=== PATIENT | male | born 1970 | race African-American/Black ===

== ENCOUNTER 2019-12-12 14:57 | Inpatient (IN) | payer OTHER ==
--- NOTE | 2019-12-12 15:33 | BHS.RME ---
Substance Use & Tx History - Substance Use History Alcohol Substance amount: one pint Vodka or Rum, 1-2 cans of beer, 24 ounces each Frequency of use: Daily Substance route: Oral Date of Last Use: 12/11/19 (First use age 12 y. No seizures. No blackouts. Admits to eye stamping machine operator) Heroin Substance amount: 12-14 bags Frequency of use: Daily Substance route: Inhalation (ex: sniffing or snorting) Date of Last Use: 12/12/19 (First use age 24y. No Od. Has Narcan at home) Nicotine Substance amount: 5 cigs Frequency of use: Daily Substance route: Smoking Date of Last Use: 12/12/19 (first use age 12y) - Last Treatment Date of last treatment: October 2018 to May 2019, detox and rehab Treatment type: Substance Use Disorder (PADMA) Where was last treatment: Detox Physical/Psych/Mental Status - Behavior General Behavior: Increased activity (restlessness, agitation) Eye Contact: Normal - Cooperativeness Cooperativeness: Cooperative - Thinking Thought Processes: Tight Thought content: Future oriented - Physical Health Problems Is patient presently having any pain?: Yes (low back pain withdrawal sx) Does patient presently have any injuries (include location): No Does patient currently have a fever: No COWS - Scale Resting Pulse: 1= [place] 81-100 Sweatin= Beads of Sweat on Face Restless Observation: 0= Sits Still Pupil Size: 0= Normal to Room Light Bone or Joint Aches: 1= Mild Discomfort Runny Nose/ Eye Tearin= Nasal Congestion GI Upset > 30mins: 1= Stomach Cramp Tremor Observation: 2= Slight Tremor Visible Yawning Observation: 0= None Anxiety or Irritability: 1=Feels Anxious/Irritable Goose Flesh Skin: 0=Smooth Skin COWS Score: 10 CIWA Nausea/Vomitin Muscle Tremors: 3 Anxiety: 2 Agitation: 0-Normal Activity Paroxysmal Sweats: 4-Forehead w/Sweat Beads Orientation: 0-Oriented Tacttile Disturbances: 0-None Auditory Disturbances: 0-None Visual Disturbances: 0-None Headache: 0-None Present CIWA-Ar Total Score: 12
[2019-12-12 16:19] VITALS: BMI 30.1
--- NOTE | 2019-12-12 17:18 | HP ---
COWS - Scale Resting Pulse: 1= [place] 81-100 Sweatin= Beads of Sweat on Face Restless Observation: 1= Difficult to Sit Still Pupil Size: 1= Pupils >than Normal Bone or Joint Aches: 4=Acute Joint/Muscle Pain Runny Nose/ Eye Tearin= Runny Nose/Eyes GI Upset > 30mins: 1= Stomach Cramp Tremor Observation: 2= Slight Tremor Visible Yawning Observation: 1= 1-2x During Session Anxiety or Irritability: 1=Feels Anxious/Irritable Goose Flesh Skin: 0=Smooth Skin COWS Score: 17 CIWA Score Nausea/Vomitin Muscle Tremors: 4-Moderate,w/Arms Extend Anxiety: 3 Agitation: 2 Paroxysmal Sweats: 4-Forehead w/Sweat Beads Orientation: 0-Oriented Tacttile Disturbances: 0-None Auditory Disturbances: 0-None Visual Disturbances: 0-None Headache: 2-Mild CIWA-Ar Total Score: 18 - Admission Criteria OASAS Guidelines: Admission for Medically Managed Detox: Requires at least one of the followin. CIWA greater than 12 2. Seizures within the past 24 hours 3. Delirium tremens within the past 24 hours 4. Hallucinations within the past 24 hours 5. Acute intervention needed for co occurring medical disorder 6. Acute intervention needed for co occurring psychiatric disorder 7. Severe withdrawal that cannot be handled at a lower level of care (continued vomiting, continued diarrhea, abnormal vital signs) requiring intravenous medication and/or fluids 8. Admission ROS [facility] Chief Complaint: Seeking admission to detox from heroin and alcohol Allergies/Adverse Reactions: Allergies Allergy/AdvReac Type Severity Reaction Status Date / Time aspirin Allergy Verified 12/12/19 19:31 aspirin Allergy Uncoded 12/12/19 18:33 History of Present Illness: 48 years old male with 24 years of heroin dependence and 35 years of alcohol dependence is seeking admission to detox. This is his first admission to [facility] and he was referred from [facility]. Patient reports that his last detox was at [facility] and he relapsed in July 2019. Patient reports use of 12-14 bags of heroin daily and he drinks 1 pint Vodka or rum and 2 cans 24 oz. beer daily. He denies medical history, psych. history and suicidal ideation at this time. Patient is noted with right hand tremor and states that he has not been medically diagnosed for the condition and he is to follow up with a neurologist after detox. 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 He is unemployed, homeless and denies legal issues. Exam Limitations: No Limitations - Ebola screening Have you traveled outside of the country in the last 21 days: No Have you had contact with anyone from an Ebola affected area: No Have you been sick,other than usual withdrawal symptoms: No Do you have a fever: No - Review of Systems Constitutional: Chills, Malaise, Night Sweats, Changes in sleep, Other (right hand tremors) EENT: reports: Nose Congestion Respiratory: reports: No Symptoms reported Cardiac: reports: No Symptoms Reported GI: reports: Nausea, Poor Appetite, Poor Fluid Intake, Abdominal cramping : reports: No Symptoms Reported Musculoskeletal: reports: Back Pain Integumentary: reports: Dryness, Flushing, Sweating Neuro: reports: Headache, Tremors Endocrine: reports: No Symptoms Reported Hematology: reports: No Symptoms Reported Psychiatric: reports: Mood/Affect Appropiate, Orientated x3 Other Systems: Reviewed and Negative Patient History - Patient Medical History Hx Anemia: No Hx Asthma: No Hx Chronic Obstructive Pulmonary Disease (COPD): No Hx Cancer: No Hx Cardiac Disorders: No Hx Congestive Heart Failure: No Hx Hypertension: No Hx Hypercholesterolemia: No Hx Pacemaker: No HX Cerebrovascular Accident: No Hx Seizures: No Hx Dementia: No Hx Diabetes: No Hx Gastrointestinal Disorders: No Hx Liver Disease: No Hx Genitourinary Disorders: No Hx Sexually Transmitted Disorders: No Hx Renal Disease (ESRD): No Hx Thyroid Disease: No Hx Human Immunodeficiency Virus (HIV): No (Negative 2020) Hx Hepatitis C: No Hx Depression: No Hx Suicide Attempt: No (Denies suicidal ideation at this time) Hx Bipolar Disorder: No Hx Schizophrenia: No - Patient Surgical History Past Surgical History: No - PPD History Previous Implant?: Yes Documented Results: Negative w/o proof Implanted On Prior R Admission?: No PPD to be Administered?: Yes - Reproductive History Patient is a Female of Child Bearing Age (11 -55 yrs old): No (Male) - Smoking Cessation Smoking history: Current every day smoker Have you smoked in the past 12 months: Yes Aproximately how many cigarettes per day: 5 Hx Chewing Tobacco Use: No Initiated information on smoking cessation: Yes 'Breaking Loose' booklet given: 12/12/19 - Substance & Tx. History Hx Alcohol Use: Yes Hx Substance Use: Yes Substance Use Type: Alcohol, Heroin Hx Substance Use Treatment: Yes ([facility]) - Substances abused Alcohol Amount used: 1 pint Vodka or rum and 2 cans 24 oz. beer Age of first use: 12 Date of last use: 12/11/19 Heroin Substance route: Inhalation Frequency: Daily Amount used: 12-14 bags of heroin Age of first use: 24 Date of last use: 12/12/19 Admission Physical Exam [facility] - Vital Signs Vital Signs: Vital Signs - 24 hr 12/12/19 16:18 Temperature 97.9 F Pulse Rate 89 Respiratory 16 Rate Blood Pressure 124/79 - Physical General Appearance: Yes: Moderate Distress, Tremorous, Irritable, Sweating HEENTM: Yes: Within Normal Limits Respiratory: Yes: Lungs Clear, Normal Breath Sounds, No Respiratory Distress Neck: Yes: Within Normal Limits Breast: Yes: Breast Exam Deferred Cardiology: Yes: Within Normal Limits Abdominal: Yes: Normal Bowel Sounds, Protuberent Genitourinary: Yes: Within Normal Limits Back: Yes: Normal Inspection Musculoskeletal: Yes: Back pain Extremities: Yes: Tremors, Other (right hand tremors) Neurological: Yes: Alert, Normal Mood/Affect Integumentary: Yes: Warm Lymphatic: Yes: Within Normal Limits - Diagnostic (1) Opioid dependence with withdrawal Current Visit: Yes Status: Acute (2) Alcohol dependence with withdrawal, uncomplicated Current Visit: Yes Status: Acute (3) Nicotine dependence Current Visit: Yes Status: Chronic Qualifiers: Nicotine product type: cigarettes Substance use status: uncomplicated Qualified Code(s): F17.210 - Nicotine dependence, cigarettes, uncomplicated (4) Tremor of right hand Current Visit: Yes Status: Chronic Cleared for Admission [facility] - Detox or Rehab [facility] Level of Care: Medically Managed Detox Regimen/Protocol: Librium, Methadone Claeared for Rehab Admission: No Breathalyzer - Breathalyzer Breathalyzer: 0 Urine Drug Screen - Test Device Lot number: [id number] Expiration date: 01/19/21 - Control Is test valid?: Yes - Results Drug screen NEGATIVE: No Urine drug screen results: FEN-Fentanyl, MOP-Opiates Inpatient Rehab Admission - Rehab Decision to Admit Inpatient rehab admission?: No
[2019-12-12] MEDS ORDERED: NICOTINE POLACRILEX 2 MG GUM BUC PRN (19:06)
[2019-12-12] MEDS ORDERED: BISMUTH SUBSALICYLATE 524 MG/30 ML UD PO PRN (19:06)
[2019-12-12] MEDS ORDERED: IBUPROFEN 400 MG TABLET (FP) PO PRN (19:06)
[2019-12-12] MEDS ORDERED: MAG HYDROX/AL HYDROX/SIMETH 30 ML UNIT-DOSE CUP PO PRN (19:06)
[2019-12-12] MEDS ORDERED: MAGNESIUM CITRATE 300 ML BOTTLE PO PRN (19:06)
[2019-12-12] MEDS ORDERED: chlordiazePOXIDE HCL 25 MG CAPSULE PO PRN (19:06)
[2019-12-12] MEDS ORDERED: MENTHOL/PHENOL 1 EACH UD MM PRN (19:06)
[2019-12-12] MEDS ORDERED: ACETAMINOPHEN 325 MG TABLET (FP) PO PRN ×2 (19:06)
[2019-12-12] MEDS ORDERED: cloNIDine HCL 0.1 MG TABLET PO PRN (19:06)
[2019-12-12] MEDS ORDERED: MAGNESIUM HYDROX 2400MG/30ML ORAL SUSPENSION 30 ML CUP PO PRN (19:06)
[2019-12-12] MEDS ORDERED: TUBERCULIN PPD 5 TU/0.1ML VIAL ID ONE (19:41)
[2019-12-12] MEDS ORDERED: ONDANSETRON *ODT* 4 MG TABLET SL ONE (19:45)
[2019-12-12] MEDS ORDERED: METHADONE HCL 10 MG TABLET (FOR DETOX USE ONLY) PO ONE (19:45)
[2019-12-12] MEDS: THIAMINE HCL 100 MG TABLET (FP) PO SCH (22:35)
[2019-12-12] MEDS: hydrOXYzine PAMOATE 25 MG CAPSULE (FP) PO PRN (22:35)
[2019-12-12] MEDS: MELATONIN 5 MG TABLETS PO SCH (22:35)
[2019-12-12] MEDS: chlordiazePOXIDE HCL 25 MG CAPSULE PO SCH (22:35)
[2019-12-13] MEDS: chlordiazePOXIDE HCL 25 MG CAPSULE PO SCH ×4 (06:30→22:18)
[2019-12-13] MEDS ORDERED: METHADONE (DETOX) 20 MG, METHADONE (DETOX) 5 MG PO ONE (10:00)
[2019-12-13 10:23] LABS: HEMOGLOBIN 13.6 GM/dL (11.7-16.9); MCHC 33.3 g/dl (32.0-35.9); MEAN CELL VOLUME 84.2 fl (80-96); MEAN PLT VOLUME 8.2 fl (7.5-11.1); PLATELET COUNT 216 K/MM3 (134-434); RBC 4.87 M/mm3 (4.00-5.60); RDW 15.1 % (11.9-15.9); WHITE BLOOD COUNT 5.3 K/mm3 (4.0-10.0)
[2019-12-13 10:37] LABS: ALBUMIN 3.6 g/dl (3.4-5.0); BILIRUBIN,TOTAL 0.6 mg/dL (0.2-1); BLOOD UREA NITROGEN 9.5 mg/dL (7-18); CALCIUM 9.6 mg/dL (8.5-10.1); POTASSIUM 4.2 mmol/L (3.5-5.1); TOT PROT 7.1 g/dl (6.4-8.2)
[2019-12-13] MEDS: hydrOXYzine PAMOATE 25 MG CAPSULE (FP) PO PRN ×3 (10:59→22:18)
[2019-12-13] MEDS: PRENATAL VITAMINS W/ FOLIC ACID TABLET (FP) PO SCH (10:59)
[2019-12-13] MEDS: NICOTINE 14 MG/24 HOURS TOPICAL PATCH TD SCH (10:59)
[2019-12-13] MEDS ORDERED: METHADONE HCL 5 MG TABLET (FOR DETOX USE ONLY) ONE (11:00)
[2019-12-13] MEDS ORDERED: METHADONE HCL 10 MG TABLET (FOR DETOX USE ONLY) ONE (11:00)
--- NOTE | 2019-12-13 11:19 | EKG ---
Test Reason : Blood Pressure : / mmHG Vent. Rate : 070 BPM Atrial Rate : 070 BPM P-R Int : 206 ms QRS Dur : 086 ms QT Int : 370 ms P-R-T Axes : 055 -10 -06 degrees QTc Int : 399 ms NORMAL SINUS RHYTHM NO PREVIOUS ECGS AVAILABLE POOR DATA QUALITY, INTERPRETATION MAY BE ADVERSELY AFFECTED Confirmed by ENID HERNANDEZ MD ([id number]) on 12/13/2019 11:19:43 AM Referred By: Confirmed By:ENID HERNANDEZ MD
--- NOTE | 2019-12-13 13:53 | PN ---
[facility] CIWA - CIWA Score Nausea/Vomitin-No Nausea/No Vomiting Muscle Tremors: 4-Moderate,w/Arms Extend Anxiety: 4-Mod. Anxious/Guarded Agitation: 2 Paroxysmal Sweats: 1-Minimal Palms Moist Orientation: 0-Oriented Tacttile Disturbances: 0-None Auditory Disturbances: 0-None Visual Disturbances: 0-None Headache: 0-None Present CIWA-Ar Total Score: 11 S COWS - Scale Resting Pulse: 0= [place] 80 or Below Sweatin= Chills/Flushing Restless Observation: 3= Extraneous Movement Pupil Size: 0= Normal to Room Light Bone or Joint Aches: 1= Mild Discomfort Runny Nose/ Eye Tearin= None GI Upset > 30mins: 0= None Tremor Observation of Outstretched Hands: 1= Tremor [place], Not Seen Yawning Observation: 0= None Anxiety or Irritability: 2=Irritable/Anxious Goose Flesh Skin: 0=Smooth Skin COWS Score: 8 S Progress Note (SOAP) Subjective: c/o anxiety fatigue tremors sweats Objective: 12/13/19 13:50 Vital Signs - 24 hr 12/12/19 12/12/19 12/12/19 16:18 18:35 19:15 Temperature 97.9 F 97.3 F L Pulse Rate 89 89 Respiratory 16 16 Rate Blood Pressure 124/79 124/79 O2 Sat by Pulse 98 Oximetry (%) 12/12/19 12/12/19 12/13/19 19:30 20:41 06:58 Temperature 97.8 F 98.2 F 98.2 F Pulse Rate 65 78 65 Respiratory 18 18 16 Rate Blood Pressure 136/88 127/79 136/82 O2 Sat by Pulse 96 97 Oximetry (%) Laboratory Tests 12/13/19 12/13/19 12/13/19 08:15 08:15 08:15 WBC 5.3 RBC 4.87 Hgb 13.6 Hct 41.0 MCV 84.2 MCH 28.0 MCHC 33.3 RDW 15.1 Plt Count 216 MPV 8.2 Sodium 141 Potassium 4.2 Chloride 104 Carbon Dioxide 31 Anion Gap 6 L BUN 9.5 Creatinine 1.0 Est GFR (CKD-EPI)AfAm 101.26 Est GFR (CKD-EPI)NonAf 87.37 Random Glucose 87 Calcium 9.6 Total Bilirubin 0.6 AST 12 L ALT 16 Alkaline Phosphatase 57 Total Protein 7.1 Albumin 3.6 Syphilis Serology Non-reactive covid-19 result pending alert o x 3 nad saw pt in bed during rounds but awake and communicated needs coherently. 12/13/19 13:53 Assessment: 12/13/19 13:51 withdrawal sx Plan: cont detox increase po fluids maintain safety
[2019-12-13] MEDS: MELATONIN 5 MG TABLETS PO SCH (22:17)
[2019-12-13] MEDS: THIAMINE HCL 100 MG TABLET (FP) PO SCH (22:18)
[2019-12-14] MEDS: chlordiazePOXIDE HCL 25 MG CAPSULE PO SCH ×4 (06:31→22:23)
[2019-12-14] MEDS ORDERED: METHADONE HCL 10 MG TABLET (FOR DETOX USE ONLY) PO ONE (10:00)
[2019-12-14] MEDS: PRENATAL VITAMINS W/ FOLIC ACID TABLET (FP) PO SCH (10:13)
[2019-12-14] MEDS: NICOTINE 14 MG/24 HOURS TOPICAL PATCH TD SCH (10:13)
--- NOTE | 2019-12-14 17:29 | PN ---
S CIWA - CIWA Score Nausea/Vomitin (Stomach Cramping.) Muscle Tremors: None Anxiety: 3 Agitation: 2 Paroxysmal Sweats: No Perspiration Orientation: 0-Oriented Tacttile Disturbances: 0-None Auditory Disturbances: 0-None Visual Disturbances: 0-None Headache: 0-None Present CIWA-Ar Total Score: 7 BHS COWS - Scale Resting Pulse: 0= [place] 80 or Below Sweatin= Chills/Flushing Restless Observation: 1= Difficult to Sit Still Pupil Size: 0= Normal to Room Light Bone or Joint Aches: 0= None Runny Nose/ Eye Tearin= None GI Upset > 30mins: 1= Stomach Cramp Tremor Observation of Outstretched Hands: 0= None Yawning Observation: 1= 1-2x During Session Anxiety or Irritability: 2=Irritable/Anxious Goose Flesh Skin: 0=Smooth Skin COWS Score: 6 BHS Progress Note (SOAP) Subjective: Body Aches, Stomach Cramping, Fatigue. Objective: Patient A & O X 3; In No Acute Distress. 12/14/19 17:30 Vital Signs Temperature 98.2 F 12/14/19 13:51 Pulse Rate 70 12/14/19 13:51 Respiratory Rate 17 12/14/19 13:51 Blood Pressure 138/78 12/14/19 13:51 O2 Sat by Pulse Oximetry (%) 95 12/14/19 09:10 Laboratory Tests 12/12/19 12/13/19 12/13/19 18:50 08:15 08:15 WBC 5.3 RBC 4.87 Hgb 13.6 Hct 41.0 MCV 84.2 MCH 28.0 MCHC 33.3 RDW 15.1 Plt Count 216 MPV 8.2 Sodium Potassium Chloride Carbon Dioxide Anion Gap BUN Creatinine Est GFR (CKD-EPI)AfAm Est GFR (CKD-EPI)NonAf Random Glucose Calcium Total Bilirubin AST ALT Alkaline Phosphatase Total Protein Albumin Syphilis Serology Non-reactive COVID-19 (JUS) Not detected 12/13/19 08:15 WBC RBC Hgb Hct MCV MCH MCHC RDW Plt Count MPV Sodium 141 Potassium 4.2 Chloride 104 Carbon Dioxide 31 Anion Gap 6 L BUN 9.5 Creatinine 1.0 Est GFR (CKD-EPI)AfAm 101.26 Est GFR (CKD-EPI)NonAf 87.37 Random Glucose 87 Calcium 9.6 Total Bilirubin 0.6 AST 12 L ALT 16 Alkaline Phosphatase 57 Total Protein 7.1 Albumin 3.6 Syphilis Serology COVID-19 (JUS) Lab Results noted. Assessment: 12/14/19 17:31 WITHDRAWAL SYMPTOMS. Plan: Continue Detox.
[2019-12-14] MEDS: hydrOXYzine PAMOATE 25 MG CAPSULE (FP) PO PRN ×2 (17:49→22:23)
[2019-12-14] MEDS: MELATONIN 5 MG TABLETS PO SCH (22:23)
[2019-12-14] MEDS: THIAMINE HCL 100 MG TABLET (FP) PO SCH (22:24)
[2019-12-15] MEDS ORDERED: chlordiazePOXIDE HCL 10 MG CAPSULE PO PRN
[2019-12-15] MEDS: chlordiazePOXIDE HCL 10 MG CAPSULE PO SCH ×4 (06:11→22:20)
[2019-12-15] MEDS ORDERED: METHADONE HCL 5 MG TABLET (FOR DETOX USE ONLY) ONE (08:26)
[2019-12-15] MEDS ORDERED: METHADONE HCL 10 MG TABLET (FOR DETOX USE ONLY) ONE (08:26)
[2019-12-15] MEDS ORDERED: METHADONE (DETOX) 10 MG, METHADONE (DETOX) 5 MG PO ONE (10:00)
[2019-12-15] MEDS: NICOTINE 14 MG/24 HOURS TOPICAL PATCH TD SCH (10:14)
[2019-12-15] MEDS: PRENATAL VITAMINS W/ FOLIC ACID TABLET (FP) PO SCH (10:14)
[2019-12-15] MEDS: METHOCARBAMOL 500 MG TABLET PO PRN ×2 (10:14→17:28)
[2019-12-15] MEDS ORDERED: ONDANSETRON *ODT* 4 MG TABLET SL PRN (15:53)
--- NOTE | 2019-12-15 15:55 | PN ---
[facility] CIWA - CIWA Score Nausea/Vomitin-No Nausea/No Vomiting Muscle Tremors: 2 Anxiety: 2 Agitation: 1-Slight > Activity Paroxysmal Sweats: 1-Minimal Palms Moist Orientation: 0-Oriented Tacttile Disturbances: 0-None Auditory Disturbances: 0-None Visual Disturbances: 0-None Headache: 0-None Present CIWA-Ar Total Score: 6 BHS COWS - Scale Resting Pulse: 2= [place] 101-120 Sweatin= Chills/Flushing Restless Observation: 0= Sits Still Pupil Size: 0= Normal to Room Light Bone or Joint Aches: 1= Mild Discomfort Runny Nose/ Eye Tearin= None GI Upset > 30mins: 1= Stomach Cramp Tremor Observation of Outstretched Hands: 2= Slight Tremor Visible Yawning Observation: 0= None Anxiety or Irritability: 1=Feels Anxious/Irritable Goose Flesh Skin: 0=Smooth Skin COWS Score: 8 S Progress Note (SOAP) Subjective: Back pain, sweating, feels weak Objective: 12/15/19 15:55 Last Vital Signs Temp Pulse Resp BP Pulse Ox 98.2 F 104 H 20 109/80 98 12/15/19 12:45 12/15/19 12:45 12/15/19 12:45 12/15/19 12:45 12/15/19 12:45 Laboratory Tests 12/12/19 12/13/19 12/13/19 18:50 08:15 08:15 WBC 5.3 RBC 4.87 Hgb 13.6 Hct 41.0 MCV 84.2 MCH 28.0 MCHC 33.3 RDW 15.1 Plt Count 216 MPV 8.2 Sodium Potassium Chloride Carbon Dioxide Anion Gap BUN Creatinine Est GFR (CKD-EPI)AfAm Est GFR (CKD-EPI)NonAf Random Glucose Calcium Total Bilirubin AST ALT Alkaline Phosphatase Total Protein Albumin Syphilis Serology Non-reactive COVID-19 (JUS) Not detected 12/13/19 08:15 WBC RBC Hgb Hct MCV MCH MCHC RDW Plt Count MPV Sodium 141 Potassium 4.2 Chloride 104 Carbon Dioxide 31 Anion Gap 6 L BUN 9.5 Creatinine 1.0 Est GFR (CKD-EPI)AfAm 101.26 Est GFR (CKD-EPI)NonAf 87.37 Random Glucose 87 Calcium 9.6 Total Bilirubin 0.6 AST 12 L ALT 16 Alkaline Phosphatase 57 Total Protein 7.1 Albumin 3.6 Syphilis Serology COVID-19 (JUS) Labs reviewed Assessment: 12/15/19 15:55 Withdrawal sxs Plan: Continue detox Encourage PO water intake
[2019-12-15] MEDS: hydrOXYzine PAMOATE 25 MG CAPSULE (FP) PO PRN (17:28)
[2019-12-15] MEDS: THIAMINE HCL 100 MG TABLET (FP) PO SCH (22:19)
[2019-12-15] MEDS: MELATONIN 5 MG TABLETS PO SCH (22:19)
[2019-12-16] MEDS: chlordiazePOXIDE HCL 10 MG CAPSULE PO SCH ×2 (06:02→17:53)
[2019-12-16] MEDS ORDERED: METHADONE HCL 10 MG TABLET (FOR DETOX USE ONLY) PO ONE (10:00)
[2019-12-16] MEDS: PRENATAL VITAMINS W/ FOLIC ACID TABLET (FP) PO SCH (10:12)
[2019-12-16] MEDS: NICOTINE 14 MG/24 HOURS TOPICAL PATCH TD SCH (10:13)
[2019-12-16] MEDS: METHOCARBAMOL 500 MG TABLET PO PRN ×2 (10:13→17:55)
--- NOTE | 2019-12-16 12:26 | PN ---
S CIWA - CIWA Score Nausea/Vomitin-No Nausea/No Vomiting Muscle Tremors: 2 Anxiety: 3 Agitation: 0-Normal Activity Paroxysmal Sweats: No Perspiration Orientation: 0-Oriented Tacttile Disturbances: 0-None Auditory Disturbances: 0-None Visual Disturbances: 0-None Headache: 0-None Present CIWA-Ar Total Score: 5 S COWS - Scale Resting Pulse: 1= [place] 81-100 Sweatin= Chills/Flushing Restless Observation: 0= Sits Still Pupil Size: 0= Normal to Room Light Bone or Joint Aches: 1= Mild Discomfort Runny Nose/ Eye Tearin= None GI Upset > 30mins: 0= None Tremor Observation of Outstretched Hands: 0= None Yawning Observation: 0= None Anxiety or Irritability: 1=Feels Anxious/Irritable Goose Flesh Skin: 0=Smooth Skin COWS Score: 4 S Progress Note (SOAP) Subjective: Pt reports "I feel better today than when i got here". slight anxiety muscle aches Objective: 12/16/19 12:26 Vital Signs - 24 hr 12/15/19 12/15/19 12/15/19 12:45 17:14 20:35 Temperature 98.2 F 98.4 F 97.8 F Pulse Rate 104 H 86 82 Respiratory 20 18 18 Rate Blood Pressure 109/80 125/83 115/73 O2 Sat by Pulse 98 95 Oximetry (%) 12/16/19 05:49 Temperature 97.8 F Pulse Rate 74 Respiratory 18 Rate Blood Pressure 123/82 O2 Sat by Pulse 95 Oximetry (%) Laboratory Tests 12/12/19 12/13/19 12/13/19 18:50 08:15 08:15 WBC 5.3 RBC 4.87 Hgb 13.6 Hct 41.0 MCV 84.2 MCH 28.0 MCHC 33.3 RDW 15.1 Plt Count 216 MPV 8.2 Sodium Potassium Chloride Carbon Dioxide Anion Gap BUN Creatinine Est GFR (CKD-EPI)AfAm Est GFR (CKD-EPI)NonAf Random Glucose Calcium Total Bilirubin AST ALT Alkaline Phosphatase Total Protein Albumin Syphilis Serology Non-reactive COVID-19 (JUS) Not detected 12/13/19 08:15 WBC RBC Hgb Hct MCV MCH MCHC RDW Plt Count MPV Sodium 141 Potassium 4.2 Chloride 104 Carbon Dioxide 31 Anion Gap 6 L BUN 9.5 Creatinine 1.0 Est GFR (CKD-EPI)AfAm 101.26 Est GFR (CKD-EPI)NonAf 87.37 Random Glucose 87 Calcium 9.6 Total Bilirubin 0.6 AST 12 L ALT 16 Alkaline Phosphatase 57 Total Protein 7.1 Albumin 3.6 Syphilis Serology COVID-19 (JUS) covid-19 not detected alert o x 3 nad oob ambulating with steady gait Assessment: 12/16/19 12:26 withdrawal sx Plan: cont detox increase po fluids maintain safety pt to meet with his counselor today for aftercare arrangement. Scheduled for discharge in the morning if medically stable.
[2019-12-16] MEDS: hydrOXYzine PAMOATE 25 MG CAPSULE (FP) PO PRN (17:53)
[2019-12-16] MEDS: MELATONIN 5 MG TABLETS PO SCH (22:24)
[2019-12-16] MEDS: THIAMINE HCL 100 MG TABLET (FP) PO SCH (22:24)
[2019-12-17] MEDS ORDERED: chlordiazePOXIDE HCL 10 MG CAPSULE PO ONE (05:00)
[2019-12-17] MEDS ORDERED: METHADONE HCL 5 MG TABLET (FOR DETOX USE ONLY) PO ONE (06:00)
[2019-12-17 06:19] VITALS: BP 122/80; PULSE 72; TEMP 97.8
[2019-12-17 09:26] LABS: URINE APPEARANCE CLEAR; URINE BILIRUBIN NEGATIVE (NEGATIVE); URINE COLOR YELLOW; URINE GLUCOSE (UA) NEGATIVE (NEGATIVE); URINE KETONE NEGATIVE (NEGATIVE); URINE LEUK ESTERASE NEGATIVE (NEGATIVE); URINE NITRITE NEGATIVE (NEGATIVE); URINE PROTEIN NEGATIVE (NEGATIVE); URINE UROBILINOGEN 0.2 mg/dL (0.2-1.0)
--- NOTE | 2019-12-17 14:37 | DS ---
[facility] Detox Discharge Summary Admission Date: 12/12/19 Discharge Date: 12/17/19 - History Present History: Alcohol Dependence, Opioid Dependence Additional Comments: Pt reports he has a primary care with Dr. Corley at [facility], [address] [place] [address]. [phone]. Pertinent Past History: Denies - Physical Exam Results Vital Signs: Vital Signs Temperature 97.8 F 12/17/19 05:51 Pulse Rate 72 12/17/19 05:51 Respiratory Rate 18 12/17/19 05:51 Blood Pressure 122/80 12/17/19 05:51 O2 Sat by Pulse Oximetry (%) 96 12/17/19 05:51 Alert o x 3 nad oob ambulating with steady gait cardiac:s1 s2, rrr lungs:ctab abdomen;soft,+bs,nt,nd extremities:no edema, skin intact. Pertinent Admission Physical Exam Findings: Laboratory Tests 12/12/19 12/13/19 12/13/19 18:50 08:15 08:15 WBC 5.3 RBC 4.87 Hgb 13.6 Hct 41.0 MCV 84.2 MCH 28.0 MCHC 33.3 RDW 15.1 Plt Count 216 MPV 8.2 Sodium Potassium Chloride Carbon Dioxide Anion Gap BUN Creatinine Est GFR (CKD-EPI)AfAm Est GFR (CKD-EPI)NonAf Random Glucose Calcium Total Bilirubin AST ALT Alkaline Phosphatase Total Protein Albumin Urine Color Urine Appearance Urine pH Ur Specific [place] Urine Protein Urine Glucose (UA) Urine Ketones Urine Blood Urine Nitrite Urine Bilirubin Urine Urobilinogen Ur Leukocyte Esterase Syphilis Serology Non-reactive COVID-19 (JUS) Not detected 12/13/19 12/16/19 08:15 13:20 WBC RBC Hgb Hct MCV MCH MCHC RDW Plt Count MPV Sodium 141 Potassium 4.2 Chloride 104 Carbon Dioxide 31 Anion Gap 6 L BUN 9.5 Creatinine 1.0 Est GFR (CKD-EPI)AfAm 101.26 Est GFR (CKD-EPI)NonAf 87.37 Random Glucose 87 Calcium 9.6 Total Bilirubin 0.6 AST 12 L ALT 16 Alkaline Phosphatase 57 Total Protein 7.1 Albumin 3.6 Urine Color Yellow Urine Appearance Clear Urine pH 8.0 Ur Specific [place] 1.013 Urine Protein Negative Urine Glucose (UA) Negative Urine Ketones Negative Urine Blood Negative Urine Nitrite Negative Urine Bilirubin Negative Urine Urobilinogen 0.2 Ur Leukocyte Esterase Negative Syphilis Serology COVID-19 (JUS) - Treatment Hospital Course: Detox Protocol Followed, Detoxed Safely, Responded well, Disch arged Condition Good, Rehab Referral Accepted Patient has Accepted a Rehab Referral to: [facility] Outpt program - Medication Discharge Medications: Ambulatory Orders NK [No Known Home Medication] 12/12/19 - Diagnosis (1) Alcohol dependence with withdrawal, uncomplicated Status: Acute (2) Opioid dependence with withdrawal Status: Acute (3) Nicotine dependence Status: Chronic Qualifiers: Nicotine product type: cigarettes Substance use status: uncomplicated Qualified Code(s): F17.210 - Nicotine dependence, cigarettes, uncomplicated - AMA Did Patient Leave Against Medical Advice: No
== END 2019-12-17 08:49 | disposition home or self-care (01) | DRG 773 ==
LOC: YASAS 14:57 → Y5N DETOX 18:47
PROVIDERS: ADMIT Allergy & Immunology; ATTEND Allergy & Immunology
PROC: HZ2ZZZZ Detoxification Services for Substance Abuse Treatment (ICD-10-PCS; principal; 2019-12-12)
DX: F10.230 Alcohol dependence with withdrawal, uncomplicated (principal); F11.23 Opioid dependence with withdrawal; F17.210 Nicotine dependence, cigarettes, uncomplicated; R25.1 Tremor, unspecified; Z88.6 Allergy status to analgesic agent
CPT/HCPCS: 36415; 80053; 81003; 85027; 86780; 93005; 93010; U0003